=== PATIENT | female | born 1995 | race American Indian/Alaskan Native ===

== ENCOUNTER 2021-05-04 14:59 | Emergency (ER) | payer MEDICAID ==
[2021-05-04 19:27] VITALS: BP 137/95
--- NOTE | 2021-05-04 19:51 | Emergency Department Report ---
- General Chief Complaint: Upper Respiratory Infection Stated Complaint: FLU SYMPTOMS Time Seen by Provider: 05/04/21 19:42 Source: patient Mode of arrival: Ambulatory Limitations: No Limitations - History of Present Illness Initial Comments: 25-year-old female presents to the ER today with complaints of flulike/Covid- like symptoms. Patient states that her symptoms started about 1 week ago. Patient states that she thought she had a sinus infection and so went to her primary care doctor's office last week. She states that her primary care doctor did not think it was related to a sinus infection but she was prescribed Zithromax and ibuprofen. She states that she has been taking the medications but they have not been helping. She states that she still continues to have the retro-orbital headache, generalized body aches, neck pain, and mild cough. She denies any runny nose, nasal congestion, fever or chills. She states that she did have sore throat but this has since improved. She reports no shortness of breath or chest pain. She denies any GI or symptoms. Her last menstrual cycle was March 30. She is currently on control. She states that she did do a Covid test last week Saturday way was done by testing her saliva and it was negative. She denies any ill contacts, recent travel or known COVID-19 contacts. She denies any tobacco use, alcohol abuse, illicit drug use. She denies any underlying significant past medical history. MD Complaint: cough, sinus pain, other (Retro-orbital headache, neck pain, body aches) -: week(s) (1) - Related Data Previous Rx's Medication Instructions Recorded Last Taken Type Clindamycin [Clindamycin CAP] 300 mg PO BID #20 capsule 10/05/15 Unknown Rx Acetaminophen/Codeine [Tylenol 1 tab PO Q8H PRN #15 tablet 05/04/21 Unknown Rx /Codeine # 3 tab] Fluticasone [Flonase] 2 spray NS QDAY #1 bottle 05/04/21 Unknown Rx Allergies Allergy/AdvReac Type Severity Reaction Status Date / Time Penicillins AdvReac Mild Swelling Verified 10/05/15 07:38 ED Review of Systems ROS: Stated complaint: FLU SYMPTOMS Other details as noted in HPI Comment: All other systems reviewed and negative Constitutional: denies: chills, fever Eyes: denies: eye pain, eye discharge, vision change ENT: denies: ear pain, throat pain, dental pain, hearing loss, epistaxis, congestion Respiratory: cough. denies: orthopnea, shortness of breath, SOB with exertion, SOB at rest, wheezing Cardiovascular: denies: chest pain, palpitations, dyspnea on exertion, edema, syncope, paroxysmal nocturnal dyspnea Gastrointestinal: denies: abdominal pain, nausea, diarrhea, constipation, hemate mesis, melena, hematochezia Genitourinary: denies: urgency, dysuria, frequency, hematuria, discharge, abnormal menses, dyspareunia Musculoskeletal: denies: back pain, joint swelling, arthralgia Skin: denies: rash, lesions Neurological: headache. 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, HYDRONEPHROSIS LEFT KIDNEY) Hx Sickle Cell Disease: No Hx Seizures: No Hx Asthma: No Hx COPD: No Hx HIV: No - Social History Smoking Status: Never Smoker Substance Use Type: None - Medications Home Medications: Home Medications Medication Instructions Recorded Confirmed Last Taken Type Clindamycin [Clindamycin CAP] 300 mg PO BID #20 capsule 10/05/15 Unknown Rx Acetaminophen/Codeine [Tylenol 1 tab PO Q8H PRN #15 tablet 05/04/21 Unknown Rx /Codeine # 3 tab] Fluticasone [Flonase] 2 spray NS QDAY #1 bottle 05/04/21 Unknown Rx ED Physical Exam - General Limitations: No Limitations General appearance: alert, in no apparent distress - Head Head exam: Present: atraumatic, normocephalic, normal inspection - Eye Eye exam: Present: normal appearance, PERRL, EOMI Pupils: Present: normal accommodation - ENT ENT exam: Present: normal exam, mucous membranes moist, TM's normal bilaterally, other (mild left sinus ttp) - Neck Neck exam: Present: normal inspection, full ROM. Absent: meningismus - Respiratory Respiratory exam: Present: normal lung sounds bilaterally. Absent: respiratory distress, wheezes, rales, rhonchi - Cardiovascular Cardiovascular Exam: Present: regular rate, normal rhythm, normal heart sounds - GI/Abdominal GI/Abdominal exam: Present: soft. Absent: distended, tenderness, guarding, rebound - Neurological Exam Neurological exam: Present: alert, oriented X3, CN II-XII intact, normal gait - Psychiatric Psychiatric exam: Present: normal affect, normal mood - Skin Skin exam: Present: intact ED Course Vital Signs 05/04/21 19:22 Temperature 98.7 F Pulse Rate 91 H Respiratory 18 Rate Blood Pressure 137/95 O2 Sat by Pulse 96 Oximetry ED Medical Decision Making - Medical Decision Making Patient is well-appearing, nontoxic and not in any acute pain or respiratory distress. She is neurologically intact with a normal gait. She does not appear dehydrated. Her vital signs are stable. Her history, exam, diagnostic testing and current condition do not demonstrate an infectious process such as meningitis, severe pneumonia, retropharyngeal abscess, epiglottitis, sepsis or other serious bacterial infection requiring further testing, treatment, consultation or admission at this time. Suspect a viral illness at this time. Recommend that patient get a repeat Covid test, the nasal PCR test to confirm, in the meantime recommend lots of fluids, continue taking ibuprofen, she will be given Flonase, Tylenol threes for additional pain control. Informed patient that at this time is just symptomatic treatment. If her COVID-19 testing positive she will need to quarantine but if she gets worse to return to the ER. Patient expressed understanding of all instructions and agree with plan. Patient was stable at time of discharge. Critical care attestation.: If time is entered above; I have spent that time in minutes in the direct care of this critically ill patient, excluding procedure time. ED Disposition Clinical Impression: Viral illness Disposition: HOME / SELF CARE / HOMELESS Is pt being admited?: No Does the pt Need Aspirin: No Condition: Stable Instructions: Viral Illness, Adult Additional Instructions: I recommend that you get a Covid PCR nasal test. You can continue taking ibuprofen and you can take the Tylenol threes with it as needed for pain. Tke the flonase as prescribed. I recommend lots of rest, lots of fluids, and taking a multivitamin including vitamin C, vomiting D and zinc. Recommend that you quarantine until you get the results of your Covid test. If your Covid test is positive recommend that you quarantine for 10 to 14 days. Recommend close follow-up with your primary care doctor. Return to the ER if your symptoms changes or worsens in any way. Prescriptions: Fluticasone [Flonase] 2 spray NS QDAY #1 bottle Acetaminophen/Codeine [Tylenol /Codeine # 3 tab] 1 tab PO Q8H PRN #15 tablet PRN Reason: Toothache Referrals: PRIMARY CARE, [Referring] - 3-5 Days Forms: Work/School Release Form(ED) Time of Disposition: 19:53
== END 2021-05-04 20:21 | disposition home or self-care (01) ==
LOC: ED 14:59
DX: R05 Cough (principal); R51.9 Headache, unspecified; M54.2 Cervicalgia; B34.9 Viral infection, unspecified; N28.9 Disorder of kidney and ureter, unspecified; Z88.0 Allergy status to penicillin
CPT/HCPCS: 99282